=== PATIENT | male | born 1990 | race Caucasian/White ===

== ENCOUNTER 2017-05-25 10:27 | Emergency (ER) | payer SELFPAY ==
--- NOTE | 2017-05-25 11:02 | ED.PDOC ---
History of Present Illness - General Chief Complaint: Behavioral / Psych Stated Complaint: Would like to hurt himself, hallucinations Time Seen by Provider: 05/25/17 11:02 Source: patient Exam Limitations: no limitations - History of Present Illness Initial Comments: Jeferson Amos 26 y/o male stated hearing voices almost all day telling him to kill himself and also seeing 2 big snakes trying to wrap around his neck to choke him.Claimed of polysubstance abuse for the last 7 years mentioning he is adopted and there might be schizophrenia history in the family.Also had previously cut himself left wrist area in the past.Denies thoughts of harm to others.According to adopted mom had not been compliant with his medications and 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 Timing/Duration: just prior to arrival Severity: moderate Associated Symptoms: suicidal ideation Allergies/Adverse Reactions: Allergies NO KNOWN ALLERGY Allergy (Verified 05/25/17 10:38) Review of Systems - Review of Systems Constitutional: States: no symptoms reported EENTM: States: no symptoms reported Respiratory: States: no symptoms reported Cardiology: States: no symptoms reported Gastrointestinal/Abdominal: States: no symptoms reported Genitourinary: States: no symptoms reported Musculoskeletal: States: no symptoms reported Skin: States: no symptoms reported Neurological: States: see HPI, emotional problems Past Medical History (General) - Patient Medical History Hx Stroke: No Hx Congestive Heart Failure: No Hx Diabetes: Yes Hx MRSA: Yes - Skin 2010 MRSA Source:: Wound Surgical History: no surgical history - Vaccination History Hx Influenza Vaccination: No Hx Pneumococcal Vaccination: No - Social History Hx Tobacco Use: Yes Hx Substance Use: Yes - Meth Hx Substance Use Treatment: Yes - Rehabs Family Medical History - Family History Father Family History: No Known Living Status: Still Living Hx Family;Other: PATIENT ADOPTED Physical Exam - Physical Exam General Appearance: Alert, No apparent distress, Well Developed, Well Nourished Eyes, Ears, Nose, Throat Exam: PERRL/EOMI, normal ENT inspection, pharynx normal Neck: non-tender, full range of motion, supple, normal inspection Respiratory: chest non-tender, lungs clear, normal breath sounds Cardiovascular/Chest: normal peripheral pulses, regular rate, rhythm, no murmur Peripheral Pulses: radial,right: 2+, radial,left: 2+ Gastrointestinal/Abdominal: normal bowel sounds, non tender, soft, no organomegaly Extremities Exam: non-tender, normal range of motion, no evidence of injury, no edema Neurological: alert, calm, oriented x 3 Appearance: appropriate appearance, neat, no memory impairment Behavior/Eye Contact/Speech: cooperative, good eye contact, normal speech Thoughts/Hallucinations: auditory hallucinations, visual hallucinations, other - denies thought of harming others Skin Exam: normal color, warm/dry, other - healed self inflicted linear skin cut left foream Progress - Progress Progress: 05/25/17 11:23 Last Vital Signs Temp Pulse 86 05/25/17 10:37 Resp 20 05/25/17 10:37 BP 137/84 05/25/17 10:37 Pulse Ox 95 05/25/17 10:37 05/25/17 15:39 [facility] EVALUATION DONE-need to go to [facility] today - Results/Orders Results/Orders: Laboratory Last Values WBC 6.6 K/mm3 (4.8-10.8) 05/25/17 11:20 RBC 5.50 M/mm3 (4.70-6.10) 05/25/17 11:20 Hgb 16.6 gm/dL (14.0-18.0) 05/25/17 11:20 Hct 48.1 % (42.0-52.0) 05/25/17 11:20 MCV 87.6 fl (80.0-94.0) 05/25/17 11:20 MCH 30.1 pg (27.0-31.0) 05/25/17 11:20 MCHC 34.4 g/dL (33.0-37.0) 05/25/17 11:20 RDW 13.4 % (11.5-14.5) 05/25/17 11:20 Plt Count 323 K/mm3 (130-400) 05/25/17 11:20 MPV 7.5 fl (7.40-10.4) 05/25/17 11:20 Absolute Neuts (auto) 4.00 K/uL (1.8-6.8) 05/25/17 11:20 Absolute Lymphs (auto) 1.70 K/uL (1.0-3.4) 05/25/17 11:20 Absolute Monos (auto) 0.60 K/uL (0.2-0.8) 05/25/17 11:20 Absolute Eos (auto) 0.20 K/uL (0.0-0.4) 05/25/17 11:20 Absolute Basos (auto) 0.00 K/uL (0.0-0.1) 05/25/17 11:20 Neutrophils % 60.7 % (42.0-78.0) 05/25/17 11:20 Lymphocytes % 26.4 % (20.0-50.0) 05/25/17 11:20 Monocytes % 9.2 % (2.0-9.0) H 05/25/17 11:20 Eosinophils % 3.0 % (1.0-5.0) 05/25/17 11:20 Basophils % 0.7 % (0.0-2.0) 05/25/17 11:20 Sodium 137 mmol/L (135-145) 05/25/17 11:20 Potassium 3.4 mmol/L (3.6-5.0) L 05/25/17 11:20 Chloride 102 mmol/L (101-111) 05/25/17 11:20 Carbon Dioxide 28 mmol/L (21-31) 05/25/17 11:20 Anion Gap 10.4 (12-18) L 05/25/17 11:20 BUN 16 mg/dL (7-18) 05/25/17 11:20 Creatinine 1.02 mg/dL (0.6-1.3) 05/25/17 11:20 BUN/Creatinine Ratio 15.7 (10-20) 05/25/17 11:20 Random Glucose 138 mg/dL (70-105) H 05/25/17 11:20 Serum Osmolality 277.2 mOsm/L (275-295) 05/25/17 11:20 Calcium 9.7 mg/dL (8.4-10.2) 05/25/17 11:20 Total Bilirubin 1.0 mg/dL (0.2-1.0) 05/25/17 11:20 AST 23 IU/L (10-42) 05/25/17 11:20 ALT 22 IU/L (10-60) 05/25/17 11:20 Alkaline Phosphatase 61 IU/L (42-121) 05/25/17 11:20 Serum Total Protein 7.5 gm/dL (6.4-8.2) 05/25/17 11:20 Albumin 4.8 g/dl (3.2-5.5) 05/25/17 11:20 Globulin 2.7 gm/dL (2.3-3.5) 05/25/17 11:20 Albumin/Globulin Ratio 1.8 (1.1-1.9) 05/25/17 11:20 Urine Color Yellow (Yellow) 05/25/17 11:02 Urine Appearance Clear (Clear) 05/25/17 11:02 Urine pH 6.5 (4.5-7.8) 05/25/17 11:02 Ur Specific [place] 1.025 (1.005-1.030) 05/25/17 11:02 Urine Protein 30 mg/dL 05/25/17 11:02 Urine Glucose (UA) Negative mg/dL (Negative) 05/25/17 11:02 Urine Ketones Negative mg/dL (NEGATIVE) 05/25/17 11:02 Urine Blood Negative (Negative) 05/25/17 11:02 Urine Nitrite Negative 05/25/17 11:02 Urine Bilirubin Moderate (NEGATIVE) 05/25/17 11:02 Urine Urobilinogen 1.0 mg/dL (0.2-1.0) 05/25/17 11:02 Ur Leukocyte Esterase Negative (Negative) 05/25/17 11:02 Urine RBC 0 /hpf 05/25/17 11:02 Urine WBC 0 /hpf 05/25/17 11:02 Ur Epithelial Cells 1-3 /hpf 05/25/17 11:02 Urine Bacteria Rare 05/25/17 11:02 Urine Mucus Moderate 05/25/17 11:02 Salicylates < 4.0 mg/dL (0-29.9) 05/25/17 11:20 Urine Opiates Screen Negative ng/mL (2000) 05/25/17 11:20 Acetaminophen < 10.0 ug/mL (10.0-30.0) L 05/25/17 11:20 Urine Barbiturates Negative ng/mL (200) 05/25/17 11:20 Ur Phencyclidine Scrn Negative ng/mL (25) 05/25/17 11:20 U Amphetamin/Meth Scrn Positive ng/mL (1000) H 05/25/17 11:20 U Benzodiazepines Scrn Negative ng/mL (200) 05/25/17 11:20 U Cocaine Metab Screen Negative ng/mL (300) 05/25/17 11:20 U Cannabinoids Screen Positive ng/mL (50) H 05/25/17 11:20 Ethyl Alcohol < 5.40 mg/dL (0-79) 05/25/17 11:20 - EKG/XRAY/CT EKG: Sinus, no ST T wave changes Comments: heart rate-69 Departure - Departure Clinical Impression: Suicidal ideations, Drug psychosis with hallucinations, Polysubstance ( excluding opioids) dependence Time of Disposition: 15:28 Disposition: Transfer to [facility] Condition: Fair Departure Forms: Patient Portal Self Enrollment Referrals: Haroldo Lima MD [Primary Care Provider] - 1-2 Weeks Additional Instructions: He will go by POV to Crisis respite Unit with mom bringing him.
[2017-05-25] MEDS ORDERED: SODIUM CHLORIDE 0.9% 1000ML 1,000 ML IVS ONE (11:04)
[2017-05-25 16:20] VITALS: BP 145/84; O2SAT 96
== END 2017-05-25 15:22 ==
LOC: ER 10:27
DX: R45.81 Low self-esteem (principal); R45.851 Suicidal ideations; F19.951 Other psychoactive substance use, unspecified with psychoactive substance-induced psychotic disorder with hallucinations; E11.9 Type 2 diabetes mellitus without complications
CPT/HCPCS: 36415; 80053; 80307; 80320; 80329; 81001; 85025; 93005; J7030

== ENCOUNTER 2017-09-19 14:39 | Emergency (ER) | payer SELFPAY ==
[2017-09-19 14:51] VITALS: TEMP 98.2
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
[2017-09-19] MEDS ORDERED: TETANUS,DIPHTHERIA,PERTUSSIS 1 EA SYG IM ONE (15:09)
--- NOTE | 2017-09-19 15:22 | RAD ---
EXAM DESCRIPTION: Chest,1 View CLINICAL HISTORY: pain COMPARISON: None Available. FINDINGS: Single upright portable AP view of the chest. Lung volumes are shallow with associated bronchovascular crowding. Cardiomediastinal silhouette and pulmonary vascularity are within normal limits. Lungs are clear without focal consolidations. Bilateral costophrenic angles are sharp. No pneumothorax. Visualized osseous structures of the thorax show no destructive lesions. IMPRESSION: No radiographic evidence for acute cardiopulmonary process. Electronically signed by: Zafar Ponce MD 09/19/2017 3:20 PM CDT
--- NOTE | 2017-09-19 15:22 | RAD ---
EXAM DESCRIPTION: Wrist,Left 2 Views CLINICAL HISTORY: 27 years, Male, Looking for metal COMPARISON: None FINDINGS: AP lateral left wrist study shows no fracture or dislocation. Carpal relationships are well-maintained. No significant arthritic changes are observed. No radiopaque foreign body observed. IMPRESSION: 1. Normal study Electronically signed by: Isacc Sood MD 09/19/2017 3:20 PM CDT
--- NOTE | 2017-09-19 15:25 | RAD ---
EXAM DESCRIPTION: Forearm,Left CLINICAL HISTORY: pain COMPARISON: None available Findings/impression: Frontal and lateral views of the left forearm. No acute fracture, dislocation, or destructive osseous lesions. Surrounding soft tissues are intact. No radiopaque foreign body. Electronically signed by: Zafar Ponce MD 09/19/2017 3:23 PM CDT
[2017-09-19] MEDS ORDERED: CEPHALEXIN MONOHYDRATE 500 MG CAP PO ONE (15:34)
[2017-09-19] MEDS ORDERED: KETOROLAC TROMETHAMINE INJ 60 MG/2 ML VIAL IM ONE (15:35)
[2017-09-19 16:27] VITALS: BP 148/87; O2SAT 98
== END 2017-09-19 16:27 | disposition home or self-care (01) ==
LOC: ER 14:39
DX: M79.632 Pain in left forearm (principal); F19.90 Other psychoactive substance use, unspecified, uncomplicated; I10 Essential (primary) hypertension; E11.9 Type 2 diabetes mellitus without complications; Z86.14 Personal history of Methicillin resistant Staphylococcus aureus infection; Z23 Encounter for immunization
CPT/HCPCS: 36416; 71045; 73090; 73100; 80053; 85025; 90471; 90715; 93005; J1885

== ENCOUNTER 2018-01-09 16:48 | Emergency (ER) | payer SELFPAY ==
--- NOTE | 2018-01-09 17:30 | RAD ---
EXAM DESCRIPTION: Femur,Right CLINICAL HISTORY: fall with hemorrhage under op site dressing COMPARISON: None. TECHNIQUE: 2 views right FINDINGS: Orthopedic hardware is observed in the region of the greater trochanter and in the region of the femoral head and acetabulum. Soft tissue swelling is observed lateral to the surgical site in the hip. The more distal femur is unremarkable. IMPRESSION: Postsurgical changes are observed in the hip. There is some soft tissue swelling observed lateral to the surgical site. No fracturing is detected. Electronically signed by: Zafar Back MD 01/09/2018 5:29 PM CDT
[2018-01-09 17:31] VITALS: O2SAT 97
--- NOTE | 2018-01-09 17:32 | RAD ---
EXAM DESCRIPTION: Hip,Right 2 Views CLINICAL HISTORY: fall with hemorrhage under op site dressing COMPARISON: None. TECHNIQUE: 2 views right FINDINGS: 2 surgical screws are observed in the region of the greater trochanter. Screws and anchors are observed about the femoral head and acetabulum. Soft tissue swelling is observed lateral to the surgical site. Skin sara are observed laterally. No evidence for fracture or dislocation is seen. IMPRESSION: Postsurgical changes are observed in the right hip. Soft tissue swelling is observed lateral to the hip. Electronically signed by: Zafar Back MD 01/09/2018 5:30 PM CDT
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
[2018-01-09] MEDS ORDERED: NEOMYCIN-BACITRACIN-POLYMYXIN 0.9 GM UD TOP ONE ×2 (18:11)
[2018-01-09] MEDS ORDERED: cefTRIAXone SODIUM 1 GM VIAL IM ONE (18:35)
[2018-01-09] MEDS ORDERED: SULFA/TRIMETH 800/160 (DS) TAB 1 EA TAB PO ONE (18:35)
[2018-01-09 20:17] VITALS: BP 118/64; TEMP 98.8
== END 2018-01-09 19:25 | disposition home or self-care (01) ==
LOC: ER 16:48
DX: L76.21 Postprocedural hemorrhage of skin and subcutaneous tissue following a dermatologic procedure (principal); I10 Essential (primary) hypertension; Z87.891 Personal history of nicotine dependence; W19.XXXA Unspecified fall, initial encounter; Y92.008 Other place in unspecified non-institutional (private) residence as the place of occurrence of the external cause
CPT/HCPCS: 36415; 73502; 73551; 80053; 85025; J0696

== ENCOUNTER → 2018-01-15 | Outpatient (CLI) | payer OTHER ==
--- NOTE | 2018-01-16 13:32 | RAD ---
EXAM DESCRIPTION: Femur,Right CLINICAL HISTORY: 27 years Male, ACUTE HEMATOGENOUS OSTEOMYELITIS COMPARISON: January 09, 2018 FINDINGS: Four views of the right femur were obtained. Postoperative changes are noted in the right hip without apparent hardware or other surgical complication. Some subtle linear lucency through the base of the greater trochanter which suggests a nondisplaced fracture. A ghost tract from previously removed orthopedic hardware is noted in the distal right femur. No acute fracture or malalignment. No focal bone lesion or periosteal reaction. IMPRESSION: Uncomplicated postoperative changes in the right hip. Otherwise unremarkable exam. Electronically signed by: Rahat Brown MD 01/16/2018 1:31 PM CDT
== END ==
LOC: LAB.O 12:02
PROVIDERS: ATTEND Nurse Practitioner Family
DX: M86.051 Acute hematogenous osteomyelitis, right femur (principal)

== ENCOUNTER 2018-09-03 06:20 | Emergency (ER) | payer SELFPAY ==
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
[2018-09-03] MEDS ORDERED: SODIUM CHLORIDE 0.9% 1000ML 1,000 ML IVS ONE (06:53)
[2018-09-03] MEDS ORDERED: LACTATED RINGERS 1,000 ML IVS PRN (10:15)
[2018-09-03] MEDS ORDERED: NALOXONE HCL INJ 0.4 MG/ML VIAL IV ONE (14:01)
[2018-09-03 14:10] VITALS: TEMP 97.2
[2018-09-03 14:54] VITALS: O2SAT 96
[2018-09-03 18:52] VITALS: BP 153/104
== END 2018-09-03 17:58 ==
LOC: ER 06:20
DX: T42.4X2A Poisoning by benzodiazepines, intentional self-harm, initial encounter (principal); F13.10 Sedative, hypnotic or anxiolytic abuse, uncomplicated; F25.9 Schizoaffective disorder, unspecified; F31.9 Bipolar disorder, unspecified; I10 Essential (primary) hypertension; Z87.891 Personal history of nicotine dependence; Z79.899 Other long term (current) drug therapy
CPT/HCPCS: 36415; 80048; 80076; 80320; 80329; 82550; 82553; 84484; 85025; 85610; 85730; 93005; J7030; J7120

== ENCOUNTER → 2020-06-03 | Outpatient (CLI) | payer OTHER | LOC: YCFC.O 15:20 | PROVIDERS: ATTEND Nurse Practitioner Family | DX: Z20.828 Contact with and (suspected) exposure to other viral communicable diseases (principal) ==